=== PATIENT | female | born 1945 | race Caucasian/White ===

== ENCOUNTER 2020-11-16 13:10 | Inpatient (IN) ==
[2020-11-16] MEDS ORDERED: 0.9 % Sodium Chloride 1,000 ML IVC ONE (13:29)
[2020-11-16] MEDS ORDERED: cefTRIAXone 1,000 MG in Water for inj. (sterile) 10 ML IVP ONE ×2 (13:29→17:50)
[2020-11-16 14:29] LABS: Basophils % 0.1 %; Eosinophils % 0.2 %; Hematocrit 35.2 % (35.3-44.9); Hemoglobin 11.4 g/dL (11.5-15.4); Immature Granulocytes % 0.7 % (0-4); Lymphocytes # 0.7 K/mcL (0.6-4.6); Lymphocytes % 4.5 %; Mean Corpuscular HGB Conc 32.4 g/dL (31.6-35.5); Mean Corpuscular Hemoglobin 30.2 pg (28.0-33.3); Mean Corpuscular Volume 93.4 fL (83.0-100.0); Mean Platelet Volume 10.6 fL (9.4-12.4); Monocytes # 1.5 K/mcL (0.0-1.3); Monocytes % 10.1 %; Neutrophils # 12.3 K/mcL (1.6-8.9); Platelet Count 214 K/mcL (140-400); Red Blood Count 3.77 M/mcL (3.82-4.97); Red Cell Distribution Width 13.2 % (11.5-14.5); Segmented Neutrophils % 84.4 %; White Blood Count 14.6 K/mcL (4.3-11.1)
[2020-11-16 14:33] LABS: INR 1.2; Prothrombin Time 13.9 Seconds (9.4-12.1)
[2020-11-16 14:36] LABS: Activated Partial Thrombo Time 27.3 Seconds (26.0-36.0)
[2020-11-16 15:27] LABS: Bacteria,Urine Many per hpf (None-Few); Bilirubin,Urine Negative (Negative); Blood,Urine Small (Negative); Clarity,Urine Turbid (Clear); Color,Urine Yellow (Yellow); Glucose,Urine (UA) Normal (Normal); Ketones,Urine Negative (Negative); Leukocyte Esterase,Urine Large (Negative); Mucus,Urine Few per lpf (None-Few); Nitrite,Urine Negative (Negative); PH,Urine 6.5 pH Units (5.0-8.0); Protein,Urine 70 mg/dL (Neg-Trace); RBC,Urine 0-3 per hpf (0-3); Specific Gravity,Urine 1.014 (1.010-1.025); Squamous Epithelial Cell,Urine Few per hpf (None-Few); WBC,Urine TNTC per hpf (0-3)
[2020-11-16 15:32] LABS: Albumin 3.6 g/dL (3.5-5.7); Albumin/Globulin Ratio 1.1 (1.1-2.2); Bilirubin,Direct 0.3 mg/dL (0.0-0.2); Bilirubin,Indirect 0.5 mg/dL (0.0-1.0); Bilirubin,Total 0.8 mg/dL (0.3-1.0); Calcium 9.3 mg/dL (8.6-10.3); Globulin 3.4 g/dL (2.4-3.5); Magnesium 1.9 mg/dL (1.6-2.6); Phosphorous 2.8 mg/dL (2.7-4.5); Potassium 4.4 mEq/L (3.5-5.1); Troponin I 0.23 ng/mL (< 0.04)
[2020-11-16] MEDS ORDERED: Aspirin 81 MG TAB.CHEW PO STA (15:34)
[2020-11-16] MEDS ORDERED: Naloxone 0.4 MG/ML INJ IVP PRN (17:39)
[2020-11-16] MEDS ORDERED: MOM Conc 10 ML UD.LIQ PO PRN (17:54)
[2020-11-16] MEDS ORDERED: Acetaminophen 325 MG TABLET PO PRN (17:54)
[2020-11-16] MEDS ORDERED: Ondansetron 4 MG/2 ML VIAL IVP PRN (17:54)
[2020-11-16] MEDS: 0.9 % Sodium Chloride 1,000 ML IVC SCH ×3 (17:55→21:13)
[2020-11-16] MEDS ORDERED: Dextrose Gel 15 GM/37.5 ML TUBE PO PRN ×2 (17:59)
[2020-11-16] MEDS ORDERED: D5% in Water 1,000 ML IVC PRN (17:59)
[2020-11-16] MEDS ORDERED: *HR* Dextrose 50 % in Water (Vial) 50 ML VIAL IVP PRN (17:59)
[2020-11-16] MEDS ORDERED: Acetaminophen IV 1,000 MG/100 ML BAG IVPB ONE (18:56)
[2020-11-16] MEDS: *HR* Heparin 5,000 UNIT/ML VIAL SQ SCH (23:25)
[2020-11-16] MEDS: Insulin LISPRO 300 UNITS/3 ML VIAL SUBQ SCH (23:27)
[2020-11-16] MEDS: Ipratropium Neb 0.5 MG NEBULIZER IH SCH ×2 (23:28→23:32)
[2020-11-16] MEDS: *HR* OxyCODONE Immed Rel 5 MG TABLET PO PRN (23:37)
[2020-11-17 01:39] LABS: Basophils % 0.2 %; Eosinophils % 0.1 %; Hematocrit 30.9 % (35.3-44.9); Immature Granulocytes % 0.6 % (0-4); Lymphocytes # 0.9 K/mcL (0.6-4.6); Lymphocytes % 6.6 %; Mean Corpuscular HGB Conc 32.4 g/dL (31.6-35.5); Mean Corpuscular Hemoglobin 30.5 pg (28.0-33.3); Mean Corpuscular Volume 94.2 fL (83.0-100.0); Mean Platelet Volume 10.2 fL (9.4-12.4); Monocytes # 1.7 K/mcL (0.0-1.3); Monocytes % 11.7 %; Neutrophils # 11.4 K/mcL (1.6-8.9); Platelet Count 192 K/mcL (140-400); Red Blood Count 3.28 M/mcL (3.82-4.97); Red Cell Distribution Width 13.3 % (11.5-14.5); Segmented Neutrophils % 80.8 %; White Blood Count 14.2 K/mcL (4.3-11.1)
[2020-11-17 01:56] LABS: Albumin 3.2 g/dL (3.5-5.7); Bilirubin,Total 0.6 mg/dL (0.3-1.0); Calcium 8.7 mg/dL (8.6-10.3); Globulin 3.1 g/dL (2.4-3.5); Magnesium 1.8 mg/dL (1.6-2.6); Total Protein 6.3 g/dL (6.4-8.9)
[2020-11-17] MEDS: 0.9 % Sodium Chloride 1,000 ML IVC SCH (02:11)
[2020-11-17] MEDS: Ipratropium Neb 0.5 MG NEBULIZER IH SCH ×6 (03:30→23:44)
[2020-11-17] MEDS: *HR* Heparin 5,000 UNIT/ML VIAL SQ SCH ×3 (05:22→21:59)
[2020-11-17] MEDS: *HR* OxyCODONE Immed Rel 5 MG TABLET PO PRN ×2 (06:52→21:51)
[2020-11-17 07:59] LABS: Estimated Average Glucose 186 mg/dl; Hemoglobin A1C 8.1 %
[2020-11-17] MEDS: Insulin LISPRO 300 UNITS/3 ML VIAL SUBQ SCH ×4 (09:09→21:56)
[2020-11-17] MEDS: cefTRIAXone 2,000 MG in Water for inj. (sterile) 20 ML IVP SCH (09:11)
[2020-11-17] MEDS: Budesonide/Formoterol 160/4.5 1 PUFF INH IH SCH ×2 (11:53→19:49)
[2020-11-17] MEDS: Fenofibrate 54 MG TABLET PO SCH (12:35)
[2020-11-17] MEDS: Metoprolol XL (24 HR) Succ 25 MG TAB.ER.24H PO SCH (12:35)
[2020-11-17] MEDS: Celecoxib 200 MG CAPSULE PO SCH (12:35)
[2020-11-17] MEDS: amLODIPine 5 MG TABLET PO SCH (12:35)
[2020-11-17] MEDS: Aspirin Enteric Coated 81 MG Tablet PO SCH (12:39)
[2020-11-17] MEDS: Gabapentin 300 MG CAPSULE PO SCH ×2 (14:14→21:52)
[2020-11-17] MEDS: ALPRAZolam 0.25 MG TABLET PO PRN (21:52)
[2020-11-18] MEDS: Ipratropium Neb 0.5 MG NEBULIZER IH SCH ×6 (03:25→23:55)
[2020-11-18] MEDS: *HR* Heparin 5,000 UNIT/ML VIAL SQ SCH ×3 (05:53→22:32)
[2020-11-18] MEDS: Budesonide/Formoterol 160/4.5 1 PUFF INH IH SCH ×2 (07:25→20:21)
[2020-11-18] MEDS: cefTRIAXone 2,000 MG in Water for inj. (sterile) 20 ML IVP SCH (08:29)
[2020-11-18] MEDS: Metoprolol XL (24 HR) Succ 25 MG TAB.ER.24H PO SCH (08:29)
[2020-11-18] MEDS: Fenofibrate 54 MG TABLET PO SCH (08:29)
[2020-11-18] MEDS: Gabapentin 300 MG CAPSULE PO SCH ×3 (08:29→22:30)
[2020-11-18] MEDS: Celecoxib 200 MG CAPSULE PO SCH (08:29)
[2020-11-18] MEDS: Aspirin Enteric Coated 81 MG Tablet PO SCH (08:29)
[2020-11-18] MEDS: amLODIPine 5 MG TABLET PO SCH (08:29)
[2020-11-18] MEDS: Insulin LISPRO 300 UNITS/3 ML VIAL SUBQ SCH ×4 (08:30→22:28)
[2020-11-18] MEDS: *HR* HYDROcodone/Acet 5/325 mg TABLET PO PRN ×2 (08:36→16:31)
[2020-11-18 12:49] LABS: Basophils % 0.2 %; Eosinophils # 0.2 K/mcL (0.0-0.6); Eosinophils % 1.1 %; Hematocrit 30.9 % (35.3-44.9); Hemoglobin 10.1 g/dL (11.5-15.4); Immature Granulocytes % 1.1 % (0-4); Lymphocytes # 0.9 K/mcL (0.6-4.6); Lymphocytes % 6.2 %; Mean Corpuscular HGB Conc 32.7 g/dL (31.6-35.5); Mean Corpuscular Hemoglobin 30.4 pg (28.0-33.3); Mean Corpuscular Volume 93.1 fL (83.0-100.0); Mean Platelet Volume 10.8 fL (9.4-12.4); Monocytes # 1.9 K/mcL (0.0-1.3); Monocytes % 13.6 %; Neutrophils # 10.7 K/mcL (1.6-8.9); Platelet Count 201 K/mcL (140-400); Red Blood Count 3.32 M/mcL (3.82-4.97); Red Cell Distribution Width 13.5 % (11.5-14.5); Segmented Neutrophils % 77.8 %; White Blood Count 13.7 K/mcL (4.3-11.1)
[2020-11-18 13:06] LABS: Calcium 9.3 mg/dL (8.6-10.3)
[2020-11-18] MEDS ORDERED: Furosemide 20 MG/2 ML VIAL IVP ONE (14:40)
[2020-11-19 03:18] LABS: Basophils # 0.1 K/mcL (0.0-0.2); Basophils % 0.3 %; Eosinophils # 0.3 K/mcL (0.0-0.6); Eosinophils % 2.3 %; Hemoglobin 10.2 g/dL (11.5-15.4); Immature Granulocytes % 2.2 % (0-4); Lymphocytes # 1.2 K/mcL (0.6-4.6); Lymphocytes % 7.8 %; Mean Corpuscular HGB Conc 31.9 g/dL (31.6-35.5); Mean Corpuscular Hemoglobin 30.6 pg (28.0-33.3); Mean Corpuscular Volume 96.1 fL (83.0-100.0); Mean Platelet Volume 11.1 fL (9.4-12.4); Monocytes # 2.1 K/mcL (0.0-1.3); Monocytes % 14.4 %; Neutrophils # 10.8 K/mcL (1.6-8.9); Platelet Count 227 K/mcL (140-400); Red Blood Count 3.33 M/mcL (3.82-4.97); Red Cell Distribution Width 13.7 % (11.5-14.5); White Blood Count 14.8 K/mcL (4.3-11.1)
[2020-11-19 03:36] LABS: Calcium 9.5 mg/dL (8.6-10.3); Potassium 4.2 mEq/L (3.5-5.1)
[2020-11-19] MEDS: Ipratropium Neb 0.5 MG NEBULIZER IH SCH ×2 (04:18→07:48)
[2020-11-19] MEDS: *HR* Heparin 5,000 UNIT/ML VIAL SQ SCH ×3 (05:43→22:24)
[2020-11-19] MEDS: Budesonide/Formoterol 160/4.5 1 PUFF INH IH SCH ×2 (07:48→22:23)
[2020-11-19] MEDS: amLODIPine 5 MG TABLET PO SCH (09:37)
[2020-11-19] MEDS: Insulin LISPRO 300 UNITS/3 ML VIAL SUBQ SCH ×4 (09:37→22:22)
[2020-11-19] MEDS: Fenofibrate 54 MG TABLET PO SCH (09:37)
[2020-11-19] MEDS: Gabapentin 300 MG CAPSULE PO SCH ×3 (09:38→22:22)
[2020-11-19] MEDS: Celecoxib 200 MG CAPSULE PO SCH (09:38)
[2020-11-19] MEDS: Aspirin Enteric Coated 81 MG Tablet PO SCH (09:38)
[2020-11-19] MEDS: cefTRIAXone 2,000 MG in Water for inj. (sterile) 20 ML IVP SCH (09:39)
[2020-11-19] MEDS: Metoprolol XL (24 HR) Succ 25 MG TAB.ER.24H PO SCH (09:39)
[2020-11-19] MEDS ORDERED: Perflutren Lipid Microsphere 1.3 ML in 0.9 % Sodium Chloride 8.7 ML IVP PRN (10:57)
[2020-11-19] MEDS ORDERED: Albumin 25% 25gram/100mL 25 GM/100 ML IV.SOLN IVPB ONE (11:00)
[2020-11-19] MEDS ORDERED: Furosemide 40 MG/4 ML VIAL IVP ONE (11:01)
[2020-11-19 15:25] LABS: ABG Base Excess 2 mEq/L (-2 to 3); ABG HCO3 30 mEq/L (21-27); ABG Oxygen Saturation 89 % (95-98); ABG PCO2 63 mmHg (35-45); ABG PH 7.29 pH Units (7.32-7.45); ABG PO2 66 mmHg (85-104); ABG TCO2 32 mEq/L (20-26)
[2020-11-19 15:28] LABS: Bacteria,Urine Few per hpf (None-Few); Bilirubin,Urine Negative (Negative); Blood,Urine Moderate (Negative); Clarity,Urine Turbid (Clear); Color,Urine Yellow (Yellow); Glucose,Urine (UA) Normal (Normal); Ketones,Urine Negative (Negative); Leukocyte Esterase,Urine Small (Negative); Mucus,Urine Few per lpf (None-Few); Nitrite,Urine Negative (Negative); Protein,Urine 100 mg/dL (Neg-Trace); RBC,Urine 30-50 per hpf (0-3); Specific Gravity,Urine 1.018 (1.010-1.025); Squamous Epithelial Cell,Urine Few per hpf (None-Few); Urobilinogen,Urine Normal (Normal); WBC,Urine 30-50 per hpf (0-3)
[2020-11-19] MEDS: Ipratropium/Albuterol Neb 3 ML IH SCH ×2 (15:46→22:23)
[2020-11-19 15:53] LABS: Protein/Creatinine Ratio,Urine 2.38 mg/mg (0.00-0.20)
[2020-11-20 01:50] LABS: Adenovirus Not Detected (Not Detect); Bordetella Pertussis Not Detected (Not Detect); Chlamydophila pneumoniae Not Detected (Not Detect); Coronavirus 229E Not Detected (Not Detect); Coronavirus HKU1 Not Detected (Not Detect); Coronavirus NL63 Not Detected (Not Detect); Coronavirus OC43 Not Detected (Not Detect); Human Metapneumovirus Not Detected (Not Detect); Human Rhinovirus/Enterovirus Not Detected (Not Detect); Influenza A Subtype 2009 H1 Not Detected (Not Detect); Influenza B Not Detected (Not Detect); Mycoplasma pneumoniae Not Detected (Not Detect); Parainfluenza Virus 1 Not Detected (Not Detect); Parainfluenza Virus 2 Not Detected (Not Detect); Parainfluenza Virus 3 Not Detected (Not Detect); Parainfluenza Virus 4 Not Detected (Not Detect); Respiratory Syncytial Virus Not Detected (Not Detect); SARS-CoV-2 Not Detected (Not Detect)
[2020-11-20] MEDS: ALPRAZolam 0.25 MG TABLET PO PRN (02:19)
[2020-11-20] MEDS: *HR* HYDROcodone/Acet 5/325 mg TABLET PO PRN (02:19)
[2020-11-20] MEDS: Ipratropium/Albuterol Neb 3 ML IH SCH ×4 (04:12→22:53)
[2020-11-20] MEDS: *HR* Heparin 5,000 UNIT/ML VIAL SQ SCH ×3 (06:35→22:39)
[2020-11-20] MEDS: *HR* OxyCODONE Immed Rel 5 MG TABLET PO PRN ×2 (06:57→22:42)
[2020-11-20] MEDS: Insulin LISPRO 300 UNITS/3 ML VIAL SUBQ SCH ×3 (09:03→18:33)
[2020-11-20 09:41] LABS: Eosinophils # 0.3 K/mcL (0.0-0.6); Hematocrit 34.7 % (35.3-44.9); Hemoglobin 11.1 g/dL (11.5-15.4); Mean Corpuscular Hemoglobin 30.3 pg (28.0-33.3); Mean Corpuscular Volume 94.8 fL (83.0-100.0); Mean Platelet Volume 10.2 fL (9.4-12.4); Platelet Count 316 K/mcL (140-400); Red Blood Count 3.66 M/mcL (3.82-4.97); Red Cell Distribution Width 13.6 % (11.5-14.5); White Blood Count 15.3 K/mcL (4.3-11.1)
[2020-11-20] MEDS: cefTRIAXone 2,000 MG in Water for inj. (sterile) 20 ML IVP SCH (09:43)
[2020-11-20 09:56] LABS: BUN/Creatinine Ratio 26 (6-26); Blood Urea Nitrogen 26 mg/dL (8-23); Carbon Dioxide 28 mEq/L (23-29); Chloride 100 mEq/L (98-107); Glucose 138 mg/dL (70-105); Osmolality,Calculated 297 (280-300); Potassium 3.7 mEq/L (3.5-5.1); Sodium 140 mEq/L (136-145); eGFR For African Americans > 60 (> 60); eGFR For Non-African Americans 54 (> 60)
[2020-11-20] MEDS: Celecoxib 200 MG CAPSULE PO SCH (09:58)
[2020-11-20] MEDS: Metoprolol XL (24 HR) Succ 25 MG TAB.ER.24H PO SCH (09:58)
[2020-11-20] MEDS: Aspirin Enteric Coated 81 MG Tablet PO SCH (09:58)
[2020-11-20] MEDS: amLODIPine 5 MG TABLET PO SCH (09:58)
[2020-11-20] MEDS: Fenofibrate 54 MG TABLET PO SCH (09:58)
[2020-11-20] MEDS: Gabapentin 300 MG CAPSULE PO SCH ×3 (09:59→22:39)
[2020-11-20] MEDS ORDERED: Furosemide 40 MG/4 ML VIAL IVP ONE (10:04)
[2020-11-20] MEDS: Budesonide/Formoterol 160/4.5 1 PUFF INH IH SCH ×2 (10:45→22:52)
[2020-11-20 10:53] LABS: Lymphocytes # 2.8 K/mcL (0.6-4.6); Monocytes # 0.3 K/mcL (0.0-1.3); Neutrophils # 11.9 K/mcL (1.6-8.9); Platelet Estimate Normal (Normal)
[2020-11-20 17:08] LABS: ABG Base Excess 8 mEq/L (-2 to 3); ABG HCO3 35 mEq/L (21-27); ABG Oxygen Saturation 96 % (95-98); ABG PCO2 63 mmHg (35-45); ABG PH 7.36 pH Units (7.32-7.45); ABG PO2 87 mmHg (85-104); ABG TCO2 37 mEq/L (20-26); Blood Gas Pressure Support 5 cm H2O
[2020-11-20 20:33] LABS: ABG Base Excess 7 mEq/L (-2 to 3); ABG HCO3 33 mEq/L (21-27); ABG Oxygen Saturation 76 % (95-98); ABG PCO2 54 mmHg (35-45); ABG PO2 42 mmHg (85-104); ABG TCO2 35 mEq/L (20-26); Blood Gas Modality BiLevel
[2020-11-20 20:54] LABS: ABG Base Excess 7 mEq/L (-2 to 3); ABG HCO3 34 mEq/L (21-27); ABG Oxygen Saturation 98 % (95-98); ABG PCO2 60 mmHg (35-45); ABG PH 7.36 pH Units (7.32-7.45); ABG PO2 103 mmHg (85-104); ABG TCO2 36 mEq/L (20-26)
[2020-11-20] MEDS: Doxycycline 100 MG CAPSULE PO SCH (22:39)
[2020-11-21] MEDS: Insulin LISPRO 300 UNITS/3 ML VIAL SUBQ SCH ×3 (00:15→11:26)
[2020-11-21] MEDS: Ipratropium/Albuterol Neb 3 ML IH SCH ×3 (04:09→15:01)
[2020-11-21 05:24] LABS: Hematocrit 36.9 % (35.3-44.9); Hemoglobin 11.9 g/dL (11.5-15.4); Lymphocytes # 2.1 K/mcL (0.6-4.6); Mean Corpuscular HGB Conc 32.2 g/dL (31.6-35.5); Mean Corpuscular Hemoglobin 30.4 pg (28.0-33.3); Mean Corpuscular Volume 94.1 fL (83.0-100.0); Mean Platelet Volume 10.1 fL (9.4-12.4); Platelet Count 342 K/mcL (140-400); Red Blood Count 3.92 M/mcL (3.82-4.97); Red Cell Distribution Width 13.8 % (11.5-14.5); White Blood Count 13.4 K/mcL (4.3-11.1)
[2020-11-21 05:45] LABS: BUN/Creatinine Ratio 32 (6-26); Blood Urea Nitrogen 31 mg/dL (8-23); Carbon Dioxide 31 mEq/L (23-29); Chloride 99 mEq/L (98-107); Glucose 133 mg/dL (70-105); Osmolality,Calculated 300 (280-300); Potassium 3.8 mEq/L (3.5-5.1); Sodium 141 mEq/L (136-145); eGFR For African Americans > 60 (> 60); eGFR For Non-African Americans 57 (> 60)
[2020-11-21 05:48] LABS: Eosinophils # 0.5 K/mcL (0.0-0.6); Monocytes # 0.8 K/mcL (0.0-1.3); Neutrophils # 9.4 K/mcL (1.6-8.9)
[2020-11-21] MEDS: *HR* Heparin 5,000 UNIT/ML VIAL SQ SCH ×2 (06:34→13:35)
[2020-11-21] MEDS ORDERED: predniSONE 20 MG TABLET PO SCH (09:00)
[2020-11-21] MEDS: cefTRIAXone 2,000 MG in Water for inj. (sterile) 20 ML IVP SCH (09:11)
[2020-11-21] MEDS: Fenofibrate 54 MG TABLET PO SCH (09:12)
[2020-11-21] MEDS: Doxycycline 100 MG CAPSULE PO SCH (09:12)
[2020-11-21] MEDS: Celecoxib 200 MG CAPSULE PO SCH (09:12)
[2020-11-21] MEDS: amLODIPine 5 MG TABLET PO SCH (09:12)
[2020-11-21] MEDS: Metoprolol XL (24 HR) Succ 25 MG TAB.ER.24H PO SCH (09:12)
[2020-11-21] MEDS: Gabapentin 300 MG CAPSULE PO SCH ×2 (09:13→14:12)
[2020-11-21] MEDS: Aspirin Enteric Coated 81 MG Tablet PO SCH (09:13)
[2020-11-21] MEDS: Budesonide/Formoterol 160/4.5 1 PUFF INH IH SCH (09:56)
[2020-11-21 14:08] VITALS: BP 149/73
== END 2020-11-21 15:58 | disposition home health service (06) | DRG 871 ==
LOC: 3ANU 13:10 → EMEROOARM 13:10 → SUATTDRO 16:59 → 3ANU 19:15 → SUATTDRO 11-17 13:09
PROVIDERS: ADMIT Internal Medicine; ATTEND Internal Medicine

== ENCOUNTER 2022-08-26 06:24 | Inpatient (IN) ==
[2022-08-26] MEDS ORDERED: CeFAZolin Syr 2,000MG/20 ML 2,000 MG/20 ML SYRINGE IVPB ONE (07:01)
[2022-08-26] MEDS ORDERED: Heparin 1,000 UNITS/500 mL 1,500 ML ONE (07:04)
[2022-08-26] MEDS ORDERED: Protamine Sulfate 50 MG/5 ML VIAL IVP ONE (07:04)
[2022-08-26] MEDS ORDERED: Acetaminophen IV 1,000 MG/100 ML BAG IVPB ONE (07:08)
[2022-08-26] MEDS ORDERED: Iopamidol - 300 100 ML INFUS..BTL ONE (07:11)
[2022-08-26] MEDS ORDERED: Iopamidol - 300 50 ML VIAL ONE (07:12)
[2022-08-26] MEDS ORDERED: 0.9 % Sodium Chloride 500 ML IVC SCH (07:15)
[2022-08-26] MEDS ORDERED: Ringers Solution, Lactated 1,000 ML IVC SCH (07:15)
[2022-08-26] MEDS ORDERED: *HR* Propofol 200 MG/20 ML VIAL IVP ONE (07:32)
[2022-08-26] MEDS ORDERED: *HR* Phenylephrine 10 MG/ML VIAL ONE (07:32)
[2022-08-26] MEDS ORDERED: Ondansetron 4 MG/2 ML VIAL ONE (07:32)
[2022-08-26] MEDS ORDERED: Lidocaine -MPF 2% 2 ML VIAL ONE ×2 (07:32→07:33)
[2022-08-26] MEDS ORDERED: *HR* Rocuronium Bromide 50 MG/5 ML VIAL ONE ×2 (07:32→09:15)
[2022-08-26] MEDS ORDERED: *HR* FentaNYL (PF) 100 MCG/2 ML VIAL ONE ×2 (07:32→08:59)
[2022-08-26] MEDS ORDERED: *HR* HYDROmorphone PF 0.5 MG/0.5 ML SYRINGE IVP PRN (08:20)
[2022-08-26] MEDS ORDERED: Ondansetron 4 MG/2 ML VIAL IVP PRN ×2 (08:20→13:53)
[2022-08-26] MEDS ORDERED: Albuterol 2.5 MG/3 ML NEBULIZER IH PRN (08:20)
[2022-08-26] MEDS ORDERED: *HR* Heparin 5,000 UNIT/ML VIAL ONE (10:15)
[2022-08-26] MEDS ORDERED: Heparin 1,000 UNITS/500 mL 1,000 ML ONE (10:47)
[2022-08-26] MEDS ORDERED: Sugammadex Sodium 200 MG/2 ML VIAL IV ONE (12:10)
[2022-08-26] MEDS ORDERED: Vancomycin 1,000 MG, Sodium Chloride IRRigation 1,000 ML IR ONE (12:25)
[2022-08-26] MEDS ORDERED: ALPRAZolam 0.25 MG TABLET PO PRN (13:53)
[2022-08-26] MEDS ORDERED: Naloxone 0.4 MG/ML INJ IVP PRN (13:53)
[2022-08-26] MEDS ORDERED: *HR* HYDROcodone/Acet 5/325 mg TABLET PO PRN (13:53)
[2022-08-26] MEDS ORDERED: *HR* Labetalol 20 MG/4 ML SYRINGE IVP PRN (13:53)
[2022-08-26] MEDS: CeFAZolin 2 GM/120 ML BAG IVPB SCH (15:43)
[2022-08-26] MEDS: Gabapentin 300 MG CAPSULE PO SCH ×2 (15:43→20:48)
[2022-08-26] MEDS: *HR* HYDROcodone/Acet 5/325 mg TABLET PO PRN (20:48)
[2022-08-27] MEDS: CeFAZolin 2 GM/120 ML BAG IVPB SCH (00:58)
[2022-08-27 04:02] LABS: Calcium 9.1 mg/dL (8.6-10.3); Potassium 4.2 mEq/L (3.5-5.1)
[2022-08-27] MEDS: *HR* HYDROcodone/Acet 5/325 mg TABLET PO PRN (05:37)
[2022-08-27] MEDS: Gabapentin 300 MG CAPSULE PO SCH (08:00)
[2022-08-27 08:34] VITALS: BP 148/60; PULSE 83; TEMP 98.3; O2SAT 94
[2022-08-27] MEDS ORDERED: Fenofibrate 54 MG TABLET PO SCH (09:00)
[2022-08-27] MEDS ORDERED: Celecoxib 200 MG CAPSULE PO SCH (09:00)
[2022-08-27] MEDS ORDERED: amLODIPine 5 MG TABLET PO SCH (09:00)
== END 2022-08-27 10:42 | disposition home or self-care (01) | DRG 983 ==
LOC: SAMDAY 06:24 → 2NNU 13:53
PROVIDERS: ADMIT Surgery Vascular Surgery; ATTEND Surgery Vascular Surgery